=== PATIENT | male | born 2005 | race African-American/Black ===

== ENCOUNTER 2024-07-24 01:31 | Emergency (ER) | payer BC ==
[2024-07-24] MEDS ORDERED: diphenhydrAMINE 25 MG CAP ONE (02:06)
== END 2024-07-24 02:58 | disposition home or self-care (01) ==
LOC: CSHERS 01:31
DX: J02.9 Acute pharyngitis, unspecified (principal)
CPT/HCPCS: 87081; 87430; 99283